=== PATIENT | male | born 1960 | race Caucasian/White ===

== ENCOUNTER → 2016-03-27 | Outpatient (CLI) | payer OTHER ==
--- NOTE | 2016-04-01 09:16 | ECHOCARDIOGRAPHY REPORT ---
PROCEDURE PHYSICIAN: CAMILO ANGELO DATE OF PROCEDURE: 03/27/2016 TWO DIMENSIONAL ECHOCARDIOGRAM REPORT PRIMARY PHYSICIAN: Dr. Murphy OTHER PHYSICIAN: REFERRING PHYSICIAN: ORDERING PHYSICIAN: ATTENDING PHYSICIAN: FAMILY PHYSICIAN: READING PHYSICIAN: INDICATION FOR THE PROCEDURE: Z 82.41, Z 82.49 MEASUREMENTS DERIVED VALUES LV DIAMETER (LAX) NORMALS NORMALS Diastolic (3.6-5.2) Eject. Fract. (60%+/-6%) Systolic (2.3-3.9) Diastolic Vol. % Shortening (0.22-0.42) Systolic Vol. Aortic Root IVS THICKNESS Diastolic (0.6-1.1) LVPW THICKNESS Diastolic (0.6-1.1) LA DIAMETER Systolic (2.1-3.7) FINDINGS: 1. Sinus rhythm. 2. Left atrial dimension is normal. Left atrial diameter: 3.8 cm. 3. Aortic root dimensions are normal. 4. Left ventricular systolic function is preserved. Left ventricular ejection fraction is 60%. Mild concentric LVH is present. Diastolic intraventricular septal diameter is 1.3 cm. 5. There is no wall motion abnormality. 6. Right heart size and function is normal. 7. There is no evidence of pericardial effusion. 8. Mild diastolic dysfunction is present. 9. IVC diameter is 1.6 cm with no significant respiratory variation. VALVULAR STRUCTURE OF THE HEART: There is mild tricuspid regurgitation with RVSP of 30 mmHg. There is no significant mitral valve, aortic valve or pulmonic valve pathology. CONCLUSION: 1. LV and RV size and function is normal. 2. LVEF is 60%. 3. Mild concentric LVH is present. 4. Normal PA pressure. 5. Mild diastolic dysfunction. Job ID: [id number] Dictated Date: 03/31/2016 15:16:16 Passenger Barge Master Date: 04/01/2016 09:08:16 / ce
== END ==
LOC: CARD 07:59
PROVIDERS: ATTEND Nurse Practitioner Family
DX: Z82.41 Family history of sudden cardiac death (principal); Z82.49 Family history of ischemic heart disease and other diseases of the circulatory system
CPT/HCPCS: 93306

== ENCOUNTER → 2019-10-02 | Outpatient (CLI) | payer BC, OTHER ==
[2019-10-02 16:27] LABS: BASOPHILS # (AUTO) 0.1 10^3/uL (0.0-0.1); BASOPHILS % (AUTO) 1 % (0-10); EOSINOPHILS # (AUTO) 0.2 10^3/uL (0.0-0.3); EOSINOPHILS % (AUTO) 2 % (0-10); HEMATOCRIT 43 % (40-54); LYMPHOCYTES # (AUTO) 1.6 X 10^3 (1.0-4.0); LYMPHOCYTES % (AUTO) 19 % (12-44); MEAN CORPUSCULAR HEMOGLOBIN 27 PG (25-34); MEAN CORPUSCULAR HGB CONC 35 G/DL (32-36); MEAN CORPUSCULAR VOLUME 79 FL (80-99); MEAN PLATELET VOLUME 10.9 FL (7.4-10.4); MONOCYTES # (AUTO) 0.6 X 10^3 (0.0-1.0); MONOCYTES % (AUTO) 8 % (0-12); NEUTROPHILS % (AUTO) 71 % (42-75); PLATELET COUNT 303 10^3/uL (130-400); RED CELL DISTRIBUTION WIDTH 15.8 % (10.0-14.5); WHITE BLOOD COUNT 8.4 10^3/uL (4.3-11.0)
[2019-10-02 17:11] LABS: ALANINE AMINOTRANSFERASE 502 U/L (0-55); ALBUMIN 4.1 GM/DL (3.2-4.5); ALKALINE PHOSPHATASE 431 U/L (40-136); AMYLASE 87 U/L (25-125); BUN/CREATININE RATIO 13; CALCIUM 9.7 MG/DL (8.5-10.1); CARBON DIOXIDE 20 MMOL/L (21-32); CHLORIDE 104 MMOL/L (98-107); CREATININE SERUM 1.04 MG/DL (0.60-1.30); GFR ESTIMATED > 60; GLUCOSE 127 MG/DL (70-105); LIPASE 78 U/L (8-78); POTASSIUM 3.5 MMOL/L (3.6-5.0); SODIUM 136 MMOL/L (135-145); TOTAL PROTEIN 7.8 GM/DL (6.4-8.2)
[2019-10-02 18:03] LABS: AMMONIA 54 UMOL/L (11-32); BILIRUBIN,TOTAL 12.2 MG/DL (0.1-1.0)
[2019-10-03 22:01] LABS: HEPATITIS C ANTIBODY C Non-Reactive (Non-Reactive)
== END ==
LOC: LAB 15:59
PROVIDERS: ATTEND Nurse Practitioner Family
DX: R10.11 Right upper quadrant pain (principal); R16.0 Hepatomegaly, not elsewhere classified; R17 Unspecified jaundice
CPT/HCPCS: 36415; 80053; 80074; 82140; 82150; 83690; 84443; 85025

== ENCOUNTER 2019-10-03 11:29 | Inpatient (IN) | payer BC ==
[~2019-10-03] VITALS: Ht 175.2 cm; Wt 92.5 kg
[2019-10-03 17:12] VITALS: BP 141/88
[2019-10-03] MEDS ORDERED: LACTATED RINGERS 1,000 ML IV ONE (18:01)
[2019-10-03] MEDS ORDERED: HOLD METFORMIN - RECEIVED CONTRAST 20 ML VIAL IV SCH (18:30)
[2019-10-03] MEDS ORDERED: CATHETER FLUSH 10 ML SYR IV PRN (18:30)
[2019-10-03] MEDS ORDERED: IOHEXOL 350 MG/ML 100 ML (OMNIPAQUE 350) VIAL IV ONE (18:30)
[2019-10-03] MEDS ORDERED: NS 100 ML (IVPB) BAG IV ONE (18:30)
[2019-10-03] MEDS: LACTATED RINGERS 1,000 ML IV SCH (18:37)
[2019-10-03] MEDS: diphenhydrAMINE 25 MG TAB (BENADRYL) PO PRN (18:37)
--- OUTSIDE RECORDS SUMMARY | 2019-10-03 19:15 | XMS REPORT | Continuity of Care Document ---
Author Organization Unknown Address Unknown Phone Unavailable Allergies There is no data. Medications There is no data. Problems Date Dx Coded Attending Type Code Diagnosis Diagnosed By 03/27/2016 ASHLY IBARRA RIVER CAPTAIN Ot Z82.41 FAMILY HISTORY OF SUDDEN CARDIAC 03/27/2016 ASHLY IBARRA RIVER CAPTAIN Ot Z82.49 FAMILY HX OF ISCHEM HEART DIS AND OTH DI 03/27/2016 ASHLY IBARRA RIVER CAPTAIN Ot Z82.41 FAMILY HISTORY OF SUDDEN CARDIAC 03/27/2016 ASHLY IBARRA RIVER CAPTAIN Ot Z82.49 FAMILY HX OF ISCHEM HEART DIS AND OTH DI 03/30/2016 ASHLY IBARRA RIVER CAPTAIN Ot Z82.41 FAMILY HISTORY OF SUDDEN CARDIAC 03/30/2016 ASHLY IBARRA RIVER CAPTAIN Ot Z82.49 FAMILY HX OF ISCHEM HEART DIS AND OTH DI 04/22/2016 ASHLY IBARRA RIVER CAPTAIN Ot Z82.41 FAMILY HISTORY OF SUDDEN CARDIAC 04/22/2016 ASHLY IBARRA RIVER CAPTAIN Ot Z82.49 FAMILY HX OF ISCHEM HEART DIS AND OTH DI Procedures There is no data. Results Test Result Range Complete blood count (CBC) with automate d white blood cell (WBC) differential - 10/02/19 16:18 Blood leukocytes automated count (number/volume) 8.4 10*3/uL 4.3-11.0 Blood erythrocytes automated count (number/volume) 5.49 10*6/uL 4.35-5.85 Venous blood hemoglobin measurement (mass/volume) 15.0 g/dL 13.3-17.7 Blood hematocrit (volume fraction) 43 % 40-54 Automated erythrocyte mean corpuscular volume 79 [ foz_us] 80-99 Automated erythrocyte mean corpuscular h emoglobin (mass per erythrocyte) 27 pg 25-34 Automated erythrocyte mean corpuscular h emoglobin concentration measurement (mass/volume) 35 g/dL 32-36 Automated erythrocyte distribution width ratio 15. 8 % 10.0- 14.5 Automated blood platelet count (count/volume) 303 10*3/uL 130-400 Automated blood platelet mean volume measurement 10.9 [foz_us] 7.4-10.4 Automated blood neutrophils/100 leukocytes 71 % 42-75 Automated blood lymphocytes/100 leukocytes 19 % 12-44 Blood monocytes/100 leukocytes 8 % 0-12 Automated blood eosinophils/100 leukocytes 2 % 0-10 Automated blood basophils/100 leukocytes 1 % 0-10 Blood neutrophils automated count (number/volume) 6.0 10*3 1.8-7.8 Blood lymphocytes automated count (number/volume) 1.6 10*3 1.0-4.0 Blood monocytes automated count (number/volume) 0. 6 10*3 0.0-1.0 Automated eosinophil count 0.2 10*3/uL 0 .0-0.3 Automated blood basophil count (count/volume) 0.1 10*3/uL 0.0-0.1 Comprehensive metabolic panel - 10/02/19 16:18 Serum or plasma sodium measurement (moles/volume) 136 mmol/L 135-145 Serum or plasma potassium measurement (moles/volume) 3.5 mmol/L 3.6-5.0 Serum or plasma chloride measurement (moles/volume) 104 mmol/L 98-107 Carbon dioxide 20 mmol/L 21-32 Serum or plasma anion gap determination (moles/volume) 12 mmol/L 5-14 Serum or plasma urea nitrogen measurement (mass/volume ) 13 mg/dL 7-18 Serum or plasma creatinine measurement (mass/volume) 1.04 mg/dL 0.60-1.30 Serum or plasma urea nitrogen/creatinine mass ratio 13 NRG Serum or plasma creatinine measurement w ith calculation of estimated glomerular filtration rate > NRG Serum or plasma glucose measurement (mass/volume) 127 mg/dL 70-105 Serum or plasma calcium measurement (mass/volume) 9.7 mg/dL 8.5-10.1 Serum or plasma total bilirubin measurement (mass/volu me) 12.2 mg/dL 0.1-1.0 Serum or plasma alkaline phosphatase austin surement (enzymatic activity/volume) 431 U/L 40-136 Serum or plasma aspartate aminotransfera se measurement (enzymatic activity/volume) 208 U/L 5-34 Serum or plasma alanine aminotransferase measurement (enzymatic activity/volume) 502 U/L 0-55 Serum or plasma protein measurement (mass/volume) 7.8 g/dL 6.4-8.2 Serum or plasma albumin measurement (mass/volume) 4.1 g/dL 3.2-4.5 CALCIUM CORRECTED 9.6 mg/dL 8.5-10.1 Serum or plasma amylase measurement (enz ymatic activity/volume) - 10/02/19 16:18 Serum or plasma amylase measurement (enzymatic activit y/volume) 87 U/L 25-125 Lipase - 10/02/19 16:18 Lipase 78 U/L 8-78 Ammonia - 10/02/19 16:18 Ammonia 54 umol/L 11-32 THYROID STIMULATING HORMONE - 10/02/19 1 6:18 THYROID STIMULATING HORMONE 1.14 u[iU]/mL 0.35-4.94 Encounters ACCT No. Visit Date/Time Discharge Status Pt. Type Provider Facility Loc./Unit Complaint [id number] 01/05/2017 09:01:16 01/05/2017 23:59:5 9 CLS Outpatient [id number] 03/27/2016 07:59:00 017 23:59:59 CLS Outpatient ASHLY IBARRA [facility] CARD Z82.41,Z82.49 [id number] 10/02/2019 15:59:[address] Outpatient MERLIN DAWKINS APRN [facility] LAB RUQ PAIN,JAUNDICE
[2019-10-03 20:00] VITALS: BP 135/87
[2019-10-03 20:20] LABS: INR 0.9 (0.8-1.4); PROTHROMBIN TIME PATIENT 12.4 SEC (12.2-14.7)
--- NOTE | 2019-10-03 20:39 | Diagnostic Imaging Report ---
PROCEDURE: CT abdomen and pelvis with contrast. TECHNIQUE: Multiple contiguous axial images were obtained through the abdomen and pelvis after administration of intravenous contrast. Auto Exposure Controls were utilized during the CT exam to meet ALARA standards for radiation dose reduction. INDICATION: Hyperbilirubinemia and jaundice. COMPARISON: None. FINDINGS: The lung bases are clear. The gallbladder is full of gallstones. However, there is no inflammation to suggest cholecystitis. There is nonspecific mild to moderate distention of the biliary system throughout the liver. However, no obvious choledocholithiasis, liver or pancreatic mass identified. The pancreatic duct is nondilated. There is no inflammation. The spleen, adrenal glands, kidneys, vascular structures and bowel are unremarkable. There is no free air or free fluid. The urinary bladder is grossly unremarkable. Slight prostate enlargement is seen. The bony structures are age-appropriate. IMPRESSION: 1. Intra and extrahepatic biliary ductal dilatation of uncertain etiology. 2. No obvious liver or pancreatic mass is seen. 3. There is no obvious choledocholithiasis, consider MRCP. 4. Cholelithiasis without cholecystitis. 5. Slight prostate enlargement. Dictated by: Dictated on workstation # [id number]
[2019-10-03] MEDS: LACTULOSE SYRUP 10GM/15ML (ENULOSE) 30ML UDC PO SCH (21:07)
[2019-10-03] MEDS: CHOLESTYRAMINE 4 GM (QUESTRAN LITE, PREVALITE) PKT PO SCH (21:07)
[2019-10-03 23:30] VITALS: BP 138/89
[2019-10-04] VITALS (10 sets, daily range): BP systolic 133–178; BP diastolic 87–112
[2019-10-04] MEDS: diphenhydrAMINE 25 MG TAB (BENADRYL) PO PRN ×2 (02:02→19:57)
[2019-10-04] MEDS: LACTATED RINGERS 1,000 ML IV SCH ×4 (02:03→19:56)
[2019-10-04 06:05] LABS: BASOPHILS # (AUTO) 0.1 10^3/uL (0.0-0.1); BASOPHILS % (AUTO) 1 % (0-10); EOSINOPHILS # (AUTO) 0.3 10^3/uL (0.0-0.3); EOSINOPHILS % (AUTO) 4 % (0-10); HEMATOCRIT 40 % (40-54); HEMOGLOBIN 13.8 G/DL (13.3-17.7); LYMPHOCYTES # (AUTO) 1.1 X 10^3 (1.0-4.0); LYMPHOCYTES % (AUTO) 16 % (12-44); MEAN CORPUSCULAR HEMOGLOBIN 28 PG (25-34); MEAN CORPUSCULAR HGB CONC 35 G/DL (32-36); MEAN CORPUSCULAR VOLUME 80 FL (80-99); MEAN PLATELET VOLUME 10.8 FL (7.4-10.4); MONOCYTES # (AUTO) 0.6 X 10^3 (0.0-1.0); MONOCYTES % (AUTO) 9 % (0-12); NEUTROPHILS # (AUTO) 4.8 X 10^3 (1.8-7.8); NEUTROPHILS % (AUTO) 70 % (42-75); PLATELET COUNT 303 10^3/uL (130-400); RED CELL DISTRIBUTION WIDTH 16.2 % (10.0-14.5); WHITE BLOOD COUNT 6.9 10^3/uL (4.3-11.0)
[2019-10-04 06:32] LABS: ALANINE AMINOTRANSFERASE 377 U/L (0-55); ALBUMIN 3.5 GM/DL (3.2-4.5); ALKALINE PHOSPHATASE 375 U/L (40-136); BILIRUBIN,TOTAL 10.9 MG/DL (0.1-1.0); BUN/CREATININE RATIO 10; CALCIUM 9.3 MG/DL (8.5-10.1); CARBON DIOXIDE 24 MMOL/L (21-32); CHLORIDE 104 MMOL/L (98-107); CREATININE SERUM 1.05 MG/DL (0.60-1.30); GFR ESTIMATED > 60; GLUCOSE 107 MG/DL (70-105); POTASSIUM 4.5 MMOL/L (3.6-5.0); SODIUM 136 MMOL/L (135-145); TOTAL PROTEIN 6.7 GM/DL (6.4-8.2)
--- NOTE | 2019-10-04 07:59 | History & Physical-Surgical ---
AGUILARZENA MED STUDENT 10/04/19 0758: History of Present Illness History of Present Illness Reason for visit/HPI Hyperbilirubinemia, Jaundice, Hyperammonemia Date of Admission Oct 03, 2019 at 16:57 Date Seen by a Provider: Oct 04, 2019 Time Seen by a Provider: 07:45 I consulted on this patient on 10/04/19 07:53 Attending Physician Lorie Louis DO Admitting Physician Sena Murphy MD Consult 59 year old male presented to surgery clinic yesterday for new onset of "yellow skin and itching". After reviewing labs pt was admitted for work up of hyperbi lirubinemia and high ammonia. He has no past medical history and takes no medication. Allergies and Home Medications Allergies Coded Allergies: No Known Drug Allergies (Unverified , 10/03/19) Patient Home Medication List Home Medication List Reviewed: Yes Past Yyrxcpm-Eqsytf-Aashdx Hx Patient Social History Alcohol Use: Past History (quit 12 years ago) Smoking Status: Current Everyday Smoker (uses chewing tobacco. 1/2 can per day) Recent Foreign Travel: No Contact w/Someone Who Travel: No Recent Infectious Disease Expo: No Recent Hopitalizations: No Seasonal Allergies Seasonal Allergies: No Surgeries History of Surgeries: No Respiratory Respiratory Disorders: Sleep Apnea Cardiovascular History of Cardiac Disorders: No Neurological History of Neurological Disord: No Genitourinary History of Genitourinary Disor: No Gastrointestinal History of Gastrointestinal Di: No Musculoskeletal History of Musculoskeletal Dis: No Endocrine History of Endocrine Disorders: No HEENT History of HEENT Disorders: No Cancer History of Cancer: No Psychosocial History of Psychiatric Problem: No Integumentary History of Skin or Integumenta: No Blood Transfusions History of Blood Disorders: No Family Medical History Significant Family History: CAD Over 55 Years Old Family Medial History: Diabetes mellitus 19 MOTHER Hypertension Myocardial infarction 19 MOTHER G8 BROTHER Review of Systems Constitutional: No chills, No fever, No weakness, No weight gain, No weight loss EENTM: No hearing loss, No blurred vision Respiratory: No dyspnea on exertion, No short of breath Cardiovascular: No chest pain, No palpitations Gastrointestinal: No abdominal pain, No constipation, No diarrhea; jaundice Genitourinary: No frequency, No hematuria Musculoskeletal: No joint pain, No muscle pain, No muscle stiffness Skin: change in color, pruritus Psychiatric/Neurological: Denies Anxiety, Denies Numbness, Denies Paresthesia Physical Exam Vital Signs Vital Signs - First Documented 10/03/19 10/03/19 17:00 17:12 Temp 36.4 Pulse 75 Resp 20 B/P (MAP) 141/88 Pulse Ox 98 O2 Delivery Room Air Capillary Refill : Less Than 3 Seconds Height, Weight, BMI Height: '" Weight: lbs. oz. kg; 30.13 BMI Method: General Appearance: No Apparent Distress, WD/WN; No Anxious HEENT: PERRL/EOMI Neck: Full Range of Motion, Non Tender Respiratory: Chest Non Tender, Lungs Clear, Normal Breath Sounds, No Accessory Muscle Use, No Respiratory Distress Cardiovascular: Regular Rate, Rhythm, No Edema, No Gallop, No Murmur Gastrointestinal: Normal Bowel Sounds, Non Tender, Soft Neurologic/Psychiatric: Alert, Oriented x3, Normal Mood/Affect Skin: Jaundice Data Review Labs Laboratory Tests 10/03/19 19:40: Prothrombin Time 12.4, INR Comment 0.9 Assessment/Plan Assessment/Plan Assessment/Plan Jaundice Hyperbilirubinemia Hyperammonemia Clinical Quality Measures DVT/VTE Risk/Contraindication: Risk Factor Score Per Nursin RFS Level Per Nursing on Admit: 1=Low/No VTE PPX LORIE LOUIS DO 10/04/19 1215: History of Present Illness History of Present Illness Reason for visit/HPI Cholelithiasis without Cholecystitis, with suspected Obstruction Pt was seen in my office yesterday and admitted to hospital for workup of Jaundice, hyperbilirubinemia, and elevated LFT's. Today he states his itching is slightly better with meds, he is ready to get gallbladder out. Date of Admission 10/03/2019 Time Seen by a Provider: 11:14 Allergies and Home Medications Allergies Coded Allergies: No Known Drug Allergies (Unverified , 10/03/19) Patient Home Medication List Home Medication List Reviewed: Yes Past Zeurmgf-Notgjc-Zwholu Hx Family Medical History Family Medial History: Diabetes mellitus 19 MOTHER Hypertension Myocardial infarction 19 MOTHER G8 BROTHER Review of Systems Respiratory: No dyspnea on exertion, No short of breath Cardiovascular: No chest pain, No palpitations Gastrointestinal: No abdominal pain, No constipation, No diarrhea; jaundice Physical Exam General Appearance: No Apparent Distress, WD/WN Eyes: Bilateral Eye PERRL, Bilateral Eye EOMI HEENT: Moist Mucous Membranes, Scleral Icterus (L), Scleral Icterus (R) Respiratory: Lungs Clear, Normal Breath Sounds, No Accessory Muscle Use, No Respiratory Distress Cardiovascular: Regular Rate, Rhythm, No Murmur Gastrointestinal: Non Tender, Soft, Distended (mild) Data Review Radiology Date of Exam:10/03/19 CT ABDOMEN/PELVIS W PROCEDURE: CT abdomen and pelvis with contrast. TECHNIQUE: Multiple contiguous axial images were obtained through the abdomen and pelvis after administration of intravenous contrast. Auto Exposure Controls were utilized during the CT exam to meet ALARA standards for radiation dose reduction. INDICATION: Hyperbilirubinemia and jaundice. COMPARISON: None. FINDINGS: The lung bases are clear. The gallbladder is full of gallstones. However, there is no inflammation to suggest cholecystitis. There is nonspecific mild to moderate distention of the biliary system throughout the liver. However, no obvious choledocholithiasis, liver or pancreatic mass identified. The pancreatic duct is nondilated. There is no inflammation. The spleen, adrenal glands, kidneys, vascular structures and bowel are unremarkable. There is no free air or free fluid. The urinary bladder is grossly unremarkable. Slight prostate enlargement is seen. The bony structures are age-appropriate. IMPRESSION: 1. Intra and extrahepatic biliary ductal dilatation of uncertain etiology. 2. No obvious liver or pancreatic mass is seen. 3. There is no obvious choledocholithiasis, consider MRCP. 4. Cholelithiasis without cholecystitis. 5. Slight prostate enlargement. Dictated by: Dictated on workstation # [id number] Dict: 10/03/191927 Trans: 10/03/192038 [facility] [id number] Interpreted by: JULIEN SIDDIQI Electronically signed by: JULIEN SIDDIQI 10/03/192038 Assessment/Plan Assessment/Plan Admission Diagonsis Cholelithiasis without Cholecystitis, with possible obstruction Elevated LFT's Hyperbilirubinemia Elevated Ammonia Admission Status: Inpatient Order (span 2 midnights) Reason for Inpatient Admission: Pt was admitted yesterday and will get surgery today, still needs work-up and monitoring of his elevated LFT's and ammonia levels. This will require at least 2 midnights Assessment/Plan Cholelithiasis without Cholecystitis, with possible obstruction Elevated LFT's Hyperbilirubinemia Elevated Ammonia Pt had a CT which did not show any pancreatic masses or obvious obstruction of the biliary system. His bilirubin came down today, very slightly. Plan to do Laparoscopic Cholecystectomy with cholangiogram, possible open and look around the rest of the abdomen. Discussed risks and complications, not limited to pain, bleeding infection, scar, damage to bowel or bile ducts and need for further procedure. All questions answered to pt's satisfaction. Supervisory-Addendum Brief Verification & Attestation Participated in pt care: history, MDM, physical Personally performed: exam, history, MDM Care discussed with: Medical Student Procedures: n/a Verification and Attestation of Medical Student E/M Service A medical student performed and documented this service. I then reviewed and verified all information documented by the medical student and made modifications to such information, when appropriate. I personally performed a physical exam, medical decision making and then discussed any differences bet ween the notes and made revisions as necessary to create one note. Lorie Louis , 10/04/19 , 12:19 ZENA SHEIKH MED STUDENT Oct 04, 2019 07:58 LORIE LOUIS DO Oct 04, 2019 12:15
[2019-10-04] MEDS: LACTULOSE SYRUP 10GM/15ML (ENULOSE) 30ML UDC PO SCH ×2 (08:31→19:56)
[2019-10-04 08:33] LABS: BASOPHILS # (AUTO) 0.1 10^3/uL (0.0-0.1); BASOPHILS % (AUTO) 1 % (0-10); EOSINOPHILS # (AUTO) 0.2 10^3/uL (0.0-0.3); EOSINOPHILS % (AUTO) 3 % (0-10); HEMATOCRIT 40 % (40-54); HEMOGLOBIN 13.5 G/DL (13.3-17.7); LYMPHOCYTES # (AUTO) 1.2 X 10^3 (1.0-4.0); LYMPHOCYTES % (AUTO) 20 % (12-44); MEAN CORPUSCULAR HEMOGLOBIN 27 PG (25-34); MEAN CORPUSCULAR HGB CONC 34 G/DL (32-36); MEAN CORPUSCULAR VOLUME 80 FL (80-99); MEAN PLATELET VOLUME 10.4 FL (7.4-10.4); MONOCYTES # (AUTO) 0.4 X 10^3 (0.0-1.0); MONOCYTES % (AUTO) 6 % (0-12); NEUTROPHILS # (AUTO) 4.3 X 10^3 (1.8-7.8); NEUTROPHILS % (AUTO) 70 % (42-75); PLATELET COUNT 316 10^3/uL (130-400); RED CELL DISTRIBUTION WIDTH 16.3 % (10.0-14.5); WHITE BLOOD COUNT 6.1 10^3/uL (4.3-11.0)
[2019-10-04] MEDS: CHOLESTYRAMINE 4 GM (QUESTRAN LITE, PREVALITE) PKT PO SCH ×2 (08:35→19:56)
[2019-10-04 08:52] LABS: ALANINE AMINOTRANSFERASE 362 U/L (0-55); ALBUMIN 3.5 GM/DL (3.2-4.5); ALKALINE PHOSPHATASE 368 U/L (40-136); AMMONIA 33 UMOL/L (11-32); BILIRUBIN,DIRECT 8.4 MG/DL (0.0-0.3); BILIRUBIN,TOTAL 10.9 MG/DL (0.1-1.0); BUN/CREATININE RATIO 11; CALCIUM 8.9 MG/DL (8.5-10.1); CARBON DIOXIDE 22 MMOL/L (21-32); CHLORIDE 104 MMOL/L (98-107); CREATININE SERUM 0.89 MG/DL (0.60-1.30); GFR ESTIMATED > 60; GLUCOSE 103 MG/DL (70-105); POTASSIUM 3.9 MMOL/L (3.6-5.0); SODIUM 135 MMOL/L (135-145); TOTAL PROTEIN 6.5 GM/DL (6.4-8.2)
[2019-10-04] MEDS ORDERED: BUP/EPI 0.5% 1:200,000 (MARCAINE) 10ML VIAL IJ ONE (11:46)
[2019-10-04] MEDS ORDERED: SEVOFLURANE (ULTANE) 15 ML INHAL SOLN ONE ×3 (12:15→14:01)
[2019-10-04] MEDS ORDERED: proPOfol 200 MG/20 ML (DIPRIVAN) VIAL IV ONE (12:15)
[2019-10-04] MEDS ORDERED: ROCURONIUM 10 MG/ML 5 ML SYRINGE IV ONE (12:15)
[2019-10-04] MEDS ORDERED: ONDANSETRON 4 MG/2 ML (SDV) Z0FRAN ONE (12:15)
[2019-10-04] MEDS ORDERED: fentaNYL INJECTION 100 MCG/2 ML AMP ONE (12:16)
[2019-10-04] MEDS ORDERED: MIDAZOLAM 2 MG/2 ML (VERSED) VIAL ONE (12:16)
[2019-10-04] MEDS ORDERED: ceFAZolin 2 GM IV Premixed 50 ML ONE (12:18)
[2019-10-04] MEDS: ceFAZolin 2 GM IV Premixed 50 ML IV NR (12:24)
[2019-10-04] MEDS ORDERED: LACTATED RINGERS 1,000 ML IV PRN (12:38)
[2019-10-04] MEDS ORDERED: NEOSTIGMINE 3 MG/3 ML VIAL ONE (13:23)
[2019-10-04] MEDS ORDERED: GLYCOPYRROLATE 0.2 MG/ML (ROBINUL) 2 ML VIAL ONE (13:23)
[2019-10-04] MEDS ORDERED: ONDANSETRON 4 MG/2 ML (SDV) Z0FRAN IVP PRN (14:15)
[2019-10-04] MEDS ORDERED: HYDROmorphone 2 MG/ML VIAL (DILAUDID) IV ONE (14:15)
[2019-10-04] MEDS ORDERED: morphine INJ 10 MG/ML 1ML (SYR OR VIAL) IVP ONE (14:15)
--- NOTE | 2019-10-04 14:19 | Progress Note-Post Operative ---
Post-Operative Progess Note Surgeon (s)/Waiter/Waitress Cabin Class (s) Surgeon LORIE LOUIS DO Waiter/Waitress Cabin Class: Ida Pre-Operative Diagnosis Cholelithiasis, possible obstruction, Jaundice, Hyperbilirubinemia Post-Operative Diagnosis Cholelithiasis without Cholecystitis, with Choledochalithiasis with obstruction Hydrops of the Gallbladder Jaundice Hyperbilirubinemia Elevated ammonia and LFT's Procedure & Operative Findings Date of Procedure 10/04/19 Procedure Performed/Findings PROCEDURE: 1. Laparoscopic cholecystectomy with intraoperative cholangiogram. 2. Laparoscopic common bile duct exploration COMPLICATIONS: None. PROCEDURE: The patient was taken to the operating suite and was prepped and draped in sterile fashion. A surgical pause was performed. Just superior to the umbilicus, a 12 mm incision was made. Dissection was taken down to the fascia, which was then scored and grasped with a Avinash and the abdomen was then entered. A 0 Vicryl suture was placed in a [id number] fashion and a Espinoza trocar was placed and secured. Pneumoperitoneum was achieved. A 5mm trochar place in the subxyphoid and 2 in the right upper quadrant. Upon entering noted adhesions covering gallbladder; omentum was stuck on the liver. Carefully started taking these down with bovie electrocautery and blunt dissection. Able to visualize the fundus of the gallbladder; which was then grasped and elevated. Continued taking down the adhesions to the gallbladder until we could see Da's pouch and then grasped here and pulled in the inferolateral direction. Started carefully dissecting out the cystic duct, and cystic artery. The cystic duct looked very large; able to get around both the duct and the artery. Next, a clip was placed proximally and distally on the artery and then one was placed on the distal portion of the cystic duct which was then partially transected. Upon opening a lot of bile came out (under pressure) which then turned clear; this indicates a manager intermediate obstruction because the bile had leached out of the fluid. An arrow catheter was inserted into the duct and the cholangiogram was then performed. Unfortunately a filling defect was seen in the common bile duct and contrast was unable to make its way into the duodenum. Contrast did delineate the cystic duct and went up into the common hepatic and right and left hepatics. At this time we then did a laparoscopic common bile duct exploration using the arrow catheter. Catheter was pushed down into the common bile duct, flushed and then blew up the balloon and slowly pulled it back towards the cystic duct. This was done twice and we were able to remove a stone that had been blocking the common bile duct. However, once we reshot the cholangiogram it was noted that there was still an obstruction of stones in the common bile duct. At this point removed the catheter. The cystic duct was so enlarged that we elected to place a PDS endoloop on the duct to ligate it. This was placed on proximal portion of the cystic duct and then cut the stitch. The duct had been transected just prior to placement in order to get endoloop on the cystic duct. Next the cystic artery which was transected. Hook cautery was used to dissect the gallbladder from the gallbladder; did get into the gallbladder and more clear fluid leaked out. Able to use th hook cautery in the fossa to achieve hemostasis. The gallbladder was placed in an Endobag and removed through the 12 mm trocar site. The abdomen was then reinspected. Copious amounts of irrigation were used to irrigate the abdomen and there were no signs of active bleeding. Hemostasis had been achieved. The 12 mm fascial defect was then closed with the 0 Vicryl figure of eight suture that had been placed at the beginning of the case. The abdomen was then desufflated, the trocars were removed. The abdomen was then washed and dried. The skin was then closed using 4-0 Monocryl in a subcuticular fashion. The abdomen was washed and dried and Skin Affix was place over incisions. Patient tolerated the procedure well without any complications and was taken to the recovery room in stable condition. Anesthesia Type GET Estimated Blood Loss Estimated blood loss (mL): less than 10ml Specimens/Packing Specimens Removed GB and contents LORIE LOUIS DO Oct 04, 2019 14:19
--- NOTE | 2019-10-04 14:27 | Anesthesia-General Post-Op ---
General Patient Condition Mental Status/LOC: Same as Preop Cardiovascular: Satisfactory Nausea/Vomiting: Absent Respiratory: Satisfactory Pain: Controlled (Having some post-op pain, which is to be expected. ) Complications: Absent Post Op Complications Complications None Follow Up Care/Instructions Patient Instructions None needed. Anesthesia/Patient Condition Patient Condition Patient is doing well, no complaints, stable vital signs, no apparent adverse anesthesia problems. I discussed with patient the small excoriation from the ETT tape on his left cheek. Otherwise he is doing well. Plan is for patient to go for ERCP soon. JOSE RAMIRES DO Oct 04, 2019 14:27
--- NOTE | 2019-10-04 15:05 | NUR ---
PT BACK TO ROOM VIA BED ACCOMPANIED BY PROGRAMMING COORDINATOR. REPORT RECEIVED.
--- NOTE | 2019-10-04 15:17 | NUR ---
Pt is [employer] and just got back from surgery. Retail Clerk will check in tomorrow.
[2019-10-04] MEDS ORDERED: HYDROcodone/APAP 7.5 MG/325 MG (LORTAB, LORCET PLUS) TABLET PO ONE (15:46)
[2019-10-04] MEDS: HYDROcodone/APAP 7.5 MG/325 MG (LORTAB, LORCET PLUS) TABLET PO PRN ×2 (15:50→19:55)
--- NOTE | 2019-10-04 16:03 | Diagnostic Imaging Report ---
INDICATION: Fluoroscopy during intraoperative cholangiogram. FINDINGS: Fluoroscopy was provided in the OR during intraoperative cholangiogram. 33 seconds of fluoroscopic time was utilized. Images demonstrate contrast being injected via the cystic duct remnant. Images demonstrate dilatation of intrahepatic and extrahepatic bile ducts. There is a questionable filling defect identified in the common duct which could represent a common duct stone. No significant contrast is seen passing into the duodenum. IMPRESSION: Intrahepatic and extrahepatic biliary ductal dilatation. Findings are suggestive of common duct obstruction. There is a filling defect present which could represent a stone. MRCP would be useful for further evaluation. Dictated by: Dictated on workstation # [id number]
[2019-10-05 00:39] VITALS: BP 145/81
[2019-10-05] MEDS: LACTATED RINGERS 1,000 ML IV SCH ×2 (02:43→09:34)
[2019-10-05 04:06] VITALS: BP 135/81
[2019-10-05] MEDS: HYDROcodone/APAP 7.5 MG/325 MG (LORTAB, LORCET PLUS) TABLET PO PRN ×3 (04:59→13:09)
[2019-10-05 05:56] LABS: HEMOGLOBIN 12.4 G/DL (13.3-17.7); RED CELL DISTRIBUTION WIDTH 15.6 % (10.0-14.5); WHITE BLOOD COUNT 9.7 10^3/uL (4.3-11.0)
[2019-10-05 06:12] LABS: ALANINE AMINOTRANSFERASE 328 U/L (0-55); ALBUMIN 3.3 GM/DL (3.2-4.5); ALKALINE PHOSPHATASE 336 U/L (40-136); AMMONIA 42 UMOL/L (11-32); BUN/CREATININE RATIO 10; CALCIUM 8.7 MG/DL (8.5-10.1); CARBON DIOXIDE 24 MMOL/L (21-32); CHLORIDE 104 MMOL/L (98-107); CREATININE SERUM 0.98 MG/DL (0.60-1.30); GFR ESTIMATED > 60; GLUCOSE 134 MG/DL (70-105); SODIUM 136 MMOL/L (135-145); TOTAL PROTEIN 6.2 GM/DL (6.4-8.2)
[2019-10-05 06:31] LABS: BILIRUBIN,TOTAL 11.3 MG/DL (0.1-1.0)
--- NOTE | 2019-10-05 06:52 | NUR ---
LAB CONTACTED THIS RN AT 0630 TO REPORT CRITICAL TOTAL BILIRUBIN OF 11.3. THIS RN CONTACTED DR. LOUIS AND REPORTED CRITICAL LAB. NO NEW ORDERS RECEIVED AT THIS TIME.
[2019-10-05 07:40] VITALS: BP 173/98
--- NOTE | 2019-10-05 07:45 | Progress Note - Surgery ---
ZENA SHEIKH MED STUDENT 10/05/19 0745: Subjective Date Seen by a Provider: Oct 05, 2019 Time Seen by a Provider: 07:30 Subjective/Events-last exam Mr. Randall was seen and examined this morning and he said he feels "pretty good" after his surgery yesterday. He has been up and walking, has had bowel movements, and is eating well. His pain level is a 5/10 over the incisional site and his itchiness has decreased by 50%. He still has considerable scleral icterus. He denies N/V, chest pain, fevers and chills, but does report difficulty "taking a deep breath". He says when he inspires it feels like "something is holding him down" and he motioned to the incisional area in RUQ. His bilirubin remains high and has increased to 11.3 today. Objective Exam Vital Signs Date Time Temp Pulse Resp B/P (MAP) Pulse Ox O2 Delivery O2 Flow Rate FiO2 10/05/19 04:06 36.2 75 18 135/81 (99) 96 NIV CPAP 10/05/19 00:39 36.2 95 17 145/81 (102) 92 Room Air 10/04/19 20:00 Room Air 10/04/19 20:00 35.8 96 16 166/90 (115) 95 Room Air 10/04/19 15:13 36.6 86 18 159/112 (128) 95 Room Air 10/04/19 14:50 37.1 16 168/101 (123) 98 Room Air 10/04/19 14:50 Room Air 10/04/19 14:40 16 172/97 (122) 100 OxyMask 3 10/04/19 14:40 OxyMask 3 10/04/19 14:30 OxyMask 4 10/04/19 14:30 14 166/95 (118) 100 OxyMask 4 10/04/19 14:20 OxyMask 6 10/04/19 14:20 16 170/106 (127) 100 OxyMask 6 10/04/19 14:10 12 169/104 (125) 100 OxyMask 8 10/04/19 14:10 OxyMask 8 10/04/19 14:05 37 16 178/99 (125) 100 OxyMask 10 10/04/19 14:05 OxyMask 10 10/04/19 07:59 36.8 73 18 149/98 (115) 100 Room Air I & O 10/05/19 07:00 Intake Total 3680 ml Balance 3680 ml Capillary Refill : Less Than 3 SecondsLess Than 3 Seconds General Appearance: No Apparent Distress, WD/WN HEENT: Scleral Icterus (L), Scleral Icterus (R) Respiratory: No Accessory Muscle Use, No Respiratory Distress, Other (Patient states difficulty with complete inspiration. Experiences slight pain and feeling of something holding him down upon inspiration) Cardiovascular: Regular Rate, Rhythm, No Murmur Extremity: No Calf Tenderness, No Pedal Edema Neurologic/Psychiatric: Alert, Oriented x3, Normal Mood/Affect Skin: Jaundice Results Lab Laboratory Tests 10/04/19 08:29: White Blood Count 6.1, Red Blood Count 5.02, Hemoglobin 13.5, Hematocrit 40, Mean Corpuscular Volume 80, Mean Corpuscular Hemoglobin 27, Mean Corpuscular Hemoglobin Concent 34, Red Cell Distribution Width 16.3H, Platelet Count 316, Mean Platelet Volume 10.4, Neutrophils (%) (Auto) 70, Lymphocytes (%) (Auto) 20, Monocytes (%) (Auto) 6, Eosinophils (%) (Auto) 3, Basophils (%) (Auto) 1, Neutrophils # (Auto) 4.3, Lymphocytes # (Auto) 1.2, Monocytes # (Auto) 0.4, Eosinophils # (Auto) 0.2, Basophils # (Auto) 0.1, Sodium Level 135, Potassium Level 3.9, Chloride Level 104, Carbon Dioxide Level 22, Anion Gap 9, Blood Urea Nitrogen 10, Creatinine 0.89, Estimat Glomerular Filtration Rate > 60, BUN/Creatinine Ratio 11, Glucose Level 103, Calcium Level 8.9, Corrected Calcium 9.3, Total Bilirubin 10.9H, Direct Bilirubin 8.4H, Aspartate Amino Transf (AST/SGOT) 155H, Alanine Aminotransferase (ALT/SGPT) 362H, Alkaline Phosphatase 368H, Ammonia 33H, Total Protein 6.5, Albumin 3.5 10/05/19 05:41: White Blood Count 9.7, Red Blood Count 4.52, Hemoglobin 12.4L, Hematocrit 36L, Mean Corpuscular Volume 80, Mean Corpuscular Hemoglobin 27, Mean Corpuscular Hemoglobin Concent 34, Red Cell Distribution Width 15.6H, Platelet Count 326, Mean Platelet Volume 11.0H, Sodium Level 136, Potassium Level 4.0, Chloride Level 104, Carbon Dioxide Level 24, Anion Gap 8, Blood Urea Nitrogen 10, Creatinine 0.98, Estimat Glomerular Filtration Rate > 60, BUN/Creatinine Ratio 10, Glucose Level 134H, Calcium Level 8.7, Corrected Calcium 9.3, Total Bilirubin 11.3*H, Aspartate Amino Transf (AST/SGOT) 162H, Alanine Aminotran sferase (ALT/SGPT) 328H, Alkaline Phosphatase 336H, Ammonia 42H, Total Protein 6.2L, Albumin 3.3 Assessment/Plan Assessment/Plan Assessment/Plan Cholelithiasis without Cholecystitis, with possible obstruction Elevated LFT's Hyperbilirubinemia Elevated Ammonia Clinical Quality Measures DVT/VTE Risk/Contraindication: Risk Factor Score Per Nursin RFS Level Per Nursing on Admit: 1=Low/No VTE PPX KHURRAM SANTOYO DO 10/07/19 1445: Supervisory-Addendum Brief Verification & Attestation Participated in pt care: history, MDM, physical Personally performed: other (pt left before I saw him) Care discussed with: Medical Student Procedures: n/a Verification and Attestation of Medical Student E/M Service A medical student performed and documented this service. I then reviewed and verified all information documented by the medical student. Pt wanted to leave before I saw him and stated he was ok not seeing me. Khurram Santoyo , 10/07/19 , 14:44 ZENA SHEIKH MED STUDENT Oct 05, 2019 07:45 KHURRAM SANTOYO DO Oct 07, 2019 14:45
[2019-10-05] MEDS: LACTULOSE SYRUP 10GM/15ML (ENULOSE) 30ML UDC PO SCH (08:10)
[2019-10-05] MEDS ORDERED: HYDR-700 PO (08:10)
[2019-10-05] MEDS ORDERED: SENN15TA PO (08:10)
[2019-10-05] MEDS ORDERED: DIPH25CA79 PO (08:10)
[2019-10-05] MEDS: CHOLESTYRAMINE 4 GM (QUESTRAN LITE, PREVALITE) PKT PO SCH (08:10)
[2019-10-05] MEDS ORDERED: FLUT9.9S NSEACH (08:10)
[2019-10-05] MEDS ORDERED: IBUP-2185 PO (08:10)
--- NOTE | 2019-10-05 08:41 | NUR ---
SPOKE WITH THE PT AND WENT THRU THE EXT MED HISTORY TO COMPLETE THE MED REC PT SAYS THE ONLY MEDICATION HE HAS BEEN ON IS HYDROXYZINE FOR ITCHING AND HE JUST STARTED THIS PRIOR TO BEING ADMITTED OTC MEDS: IBUPROFEN FLONASE BENADRYL SENNA I DID UPDATE THE PATIENTS PREFERRED PHARM
--- NOTE | 2019-10-05 09:35 | NUR ---
provided prayer and Communion.
[2019-10-05 12:03] VITALS: BP 141/77
[2019-10-05] MEDS ORDERED: CHOL4PAC3 PO (14:04)
[2019-10-05] MEDS ORDERED: LACT20SO2 PO (14:04)
[2019-10-05] MEDS ORDERED: HYDR-34 PO (14:04)
--- NOTE | 2019-10-05 14:05 | Discharge Inst-Surgical ---
Discharge Inst-Surgical Depart Medication/Instructions New, Converted or Re-Newed RX: RX Given to Pt/Family Patient Instructions Follow up Appt: Make appointment for 1 week. [phone] Instructions: No lifting greater than 20 pounds. No strenuous activity. May shower in 24 hours, no tub bath or soaking. Use incentive spirometer at home as directed. No Smoking Skin/Wound Care: May remove bandages in am. You need to leave the Dermabond on incision it will fall off on it's own. Symptoms to Report: Appetite Changes, Extremity Discoloration, Numbness/Tingling, Swelling Increased, Bleeding Excessive, Eyesight Changes, Pain Increased, Urine Color Change, Constipation(Persistent), Fever over 101 degree F, Pain/Pressure in chest, Urinating Difficulty, Cough Up/Vomit Blood, Heart Beat Irreg/Pounding, Pain/Pressure in jaw, Cramps in feet or legs, Lightheadedness, Pain/Pressure in shoulder, Diarrhea(Persistent), Memory Changes Suddenly, Questions/Concerns, Weight gain consecutive days, Dizziness/Fainting, Nausea/Vomiting, Shortness of Breath, Weight gain over 2 pounds If questions or concerns contact your physician Or seek help at emergency department. Consults/Follow Up Patient Instructions: You must follow up with GI on 10/05 for ERCP Activity Activity as Tolerated: Yes Activity Instructions: Avoid Stress to Incision Driving Instructions: No Driving/Refer to Dr. Ansari Discharge Diet: Avoid Fatty Foods, Low Fat/Low Cholesterol If Any Problems/Questions/Issu: Contact Your Physician, Go to Emergency Room Skin/Wound Care Infection Signs and Symptoms: Increased Redness, Foul Odor of Wound, Increased Drainage, Skin Itchy or Has a Rash, Increased Swelling, Temperature Above 101 F Bathing Instructions: Shower Stitches/[place]/Dermabond Dis: [place] LORIE LOUIS DO Oct 05, 2019 14:05
[2019-10-05 14:55] VITALS: BP 141/77
--- NOTE | 2019-10-05 14:55 | NUR ---
RON LOMBARDO demonstrates understanding of discharge instructions and accurately returns instructions upon questioning. Copy of Post-Discharge Instructions and Medication Discharge Instructions given to pt. RON LOMBARDO is able to manage continuing needs after discharge. Patients belongings returned to . Skin dry and intact; no breakdown noted. Patient discharged from 423-1 on at 1455. RON LOMBARDO left floor via WC, accompanied by STAFF.
== END 2019-10-05 14:55 | disposition home or self-care (01) | DRG 418 ==
LOC: 4TH 16:57
PROVIDERS: ADMIT Surgery; ATTEND Surgery
PROC: 0FT44ZZ Resection of Gallbladder, Percutaneous Endoscopic Approach (ICD-10-PCS; principal; 2019-10-03)
PROC: 0FC94ZZ Extirpation of Matter from Common Bile Duct, Percutaneous Endoscopic Approach (ICD-10-PCS; 2019-10-03)
PROC: BF131ZZ Fluoroscopy of Gallbladder and Bile Ducts using Low Osmolar Contrast (ICD-10-PCS; 2019-10-03)
DX: K80.71 Calculus of gallbladder and bile duct without cholecystitis with obstruction (principal); K82.1 Hydrops of gallbladder; G47.30 Sleep apnea, unspecified; F17.220 Nicotine dependence, chewing tobacco, uncomplicated
CPT/HCPCS: 36415; 74177; 76000; 80053; 82140; 82248; 85025; 85027; 85610; 87081

== ENCOUNTER 2023-01-28 05:41 | Outpatient (CLI) | payer BC ==
[~2023-01-28] VITALS: Ht 177.8 cm; Wt 100.0 kg
[~2023-01-28 05:41] MED LIST: CHOL4PAC3 PO; DIPH25CA79 PO; FLUT9.9S NSEACH; HYDR-34 PO; HYDR-700 PO; IBUP-2185 PO; LACT20SO2 PO; SENN15TA PO
[2023-01-29] MEDS ORDERED: TMSL.4C PO (09:24)
== END 2023-01-29 09:44 | disposition home or self-care (01) ==
LOC: PREOP 05:41
PROVIDERS: ATTEND Specialist
DX: Z01.818 Encounter for other preprocedural examination (principal)